=== PATIENT | female | born 1965 | race Caucasian/White ===

== ENCOUNTER → 2017-12-08 07:12 | Outpatient (CLI) | payer MEDICAID, SELFPAY ==
--- NOTE | 2017-12-08 12:30 | EEG ---
- Electroencephalogram This is an 18 channel EEG performed utilizing the International 10-20 electrode placement protocol as well as EKG reference leads, photic stimulation and hyperventilation. Background activity is in the beta range symmetrically which does attenuate with eye opening. Hyperventilation is performed for 2 minutes with good effort with no lateralizing or epileptiform changes and the post hyperventilatory phase was unremarkable. Patient did drowse during the recording. There were no epileptiform changes throughout the recording. Impression: Abnormal electro esophagram due to the presence of beta range activity however this is likely medication effect. There are no epileptiform changes.
== END ==
PROVIDERS: Family Provider Family Medicine; PCP Family Medicine; Visit Provider Family Medicine
DX: R56.9 Unspecified convulsions (principal)
CPT/HCPCS: 95819

== ENCOUNTER → 2020-12-10 05:00 | Outpatient (REF) | payer MEDICAID, SELFPAY ==
[2016-07-22 13:00] VITALS: BMI 19.5
[2020-12-10 08:03] LABS: AST(SGOT) 26 U/L (15-37); Alanine Aminotransfer ALT/SGPT 33 U/L (13-56); Albumin, Serum 2.7 g/dL (3.2-5.0); Alkaline Phosphatase 75 U/L (45-117); Bilirubin, Direct 0.11 mg/dL (0.00-0.30); Globulin 3.2 g/dL (2.2-4.2); Protein, Total 5.9 g/dL (6.4-8.2)
== END ==
LOC: OLS.SW500 05:00
PROVIDERS: PCP Family Medicine; Visit Provider Family Medicine
DX: I10 Essential (primary) hypertension (principal)
CPT/HCPCS: 36415; 80076